=== PATIENT | female | born 1955 | race Caucasian/White ===

== ENCOUNTER 2017-02-12 23:00 | Emergency (ER) | payer SELFPAY ==
[~2017-02-12] VITALS: Ht 157.5 cm; Wt 49.0 kg
[~2017-02-12 23:00] MED LIST: CYCL-36 PO; ESZO2 PO; HYDR-2768 PO; LOVA20TA PO; NAPR500 PO; WELL150T PO
[2017-02-12 23:02] VITALS: BP 209/97; PULSE 104; RESP 18; TEMP 97.7; O2SAT 99
[2017-02-12] MEDS ORDERED: HYDR25TA5 PO (23:23)
[2017-02-12] MEDS ORDERED: LOVA20TA PO (23:23)
[2017-02-12] MEDS ORDERED: ESZO1TAB PO (23:23)
[2017-02-12] MEDS ORDERED: SODIUM CHLORIDE 0.9% FLUSH 5 ML FLUSH IVF PRN (23:45)
[2017-02-12] MEDS ORDERED: cloNIDine HCL 0.1 MG TAB PO ONE (23:45)
[2017-02-12 23:51] VITALS: BP 152/81; PULSE 88; RESP 16; O2SAT 97
--- NOTE | 2017-02-12 23:55 | PD ---
HPI Chief Complaint: Hypertension Time Seen by Provider: 23:34 Travel History International Travel<30 days: No Contact w/Intl Traveler<30days: No Traveled to known affect area: No History of Present Illness HPI Patient is a 62-year-old female with history of hypertension who presents to the emergency room with complaints of accelerated hypertension. She reports that she does take hydrochlorothiazide 25 mg every day for her hypertension. Patient reports that she has been working night shifts the past 2 weeks and has not taken any of her hydrochlorothiazide. Patient reports that since yesterday , she's had a headache, reports that she noticed that her blood pressure was elevated so she decided to come to the emergency room. Patient reports that she did take a dose of hydrochlorothiazide tonight as she related her symptoms due to accelerated hypertension from not taking her blood pressure medications. Patient at this time reports that she has a mild headache. Patient with no vision changes, no nausea or vomiting. Patient denies chest pain or shortness breath at this time. PFSH Past Medical History Cardiovascular Problems: Yes (HTN) High Cholesterol: Yes Hypertension: Yes Medical other: Yes (hx h pylori ) : 3 Para: 3 Tubal Ligation: Yes Past Surgical History Appendectomy: Yes Social History Alcohol Use: Yes Tobacco Use: Yes (1ppd) Substance Use: No Allergies-Medications (Allergen,Severity, Reaction): Coded Allergies: No Known Allergies (Unverified , 02/12/17) Reported Meds & Prescriptions Reported Meds & Active Scripts Active Reported Lovastatin 20 Mg Tab 20 Mg PO DAILY Hydrochlorothiazide 25 Mg Tab 25 Mg PO DAILY Lunesta (Eszopiclone) 2 Mg Tab 2 Mg PO HS PRN Review of Systems General / Constitutional: No: Fever Eyes: No: Diploplia, Blurred Vision, Photophobia, Visual changes HENT: Positive: Headaches Cardiovascular: No: Chest Pain or Discomfort Respiratory: No: Shortness of Breath Gastrointestinal: No: Abdominal Pain Genitourinary: No: Dysuria Musculoskeletal: No: Pain Skin: No Rash Neurologic: No: Weakness Psychiatric: No: Depression Endocrine: No: Polydipsia Hematologic/Lymphatic: No: Easy Bruising Physical Exam Narrative GENERAL: No acute distress, nontoxic SKIN: Warm and dry. HEAD: Atraumatic. Normocephalic. EYES: Pupils equal and round. No scleral icterus. No injection or drainage. ENT: No nasal bleeding or discharge. Mucous membranes pink and moist. NECK: Trachea midline. No JVD. CARDIOVASCULAR: Regular rate and rhythm. No murmur appreciated. RESPIRATORY: No accessory muscle use. Clear to auscultation. Breath sounds equal bilaterally. GASTROINTESTINAL: Abdomen soft, non-tender, nondistended. Hepatic and splenic margins not palpable. MUSCULOSKELETAL: No obvious deformities. No clubbing. No cyanosis. No edema. NEUROLOGICAL: Awake and alert. No obvious cranial nerve deficits. Motor grossly within normal limits. Normal speech. Cranial nerves to 12 was intact with no obvious deficits PSYCHIATRIC: Appropriate mood and affect; insight and judgment normal. Data Data Last Documented VS Vital Signs Date Time Temp Pulse Resp B/P Pulse Ox O2 Delivery O2 Flow Rate FiO2 02/13/17 00:59 79 16 133/86 100 Room Air 02/12/17 23:02 97.7 Orders Complete Blood Count With Diff (02/12/17 23:39) Comprehensive Metabolic Panel (02/12/17 23:39) Ct Brain W/O Iv Contrast(Rout) (02/12/17 23:39) Ecg Monitoring (02/12/17 23:39) Iv Access Insert/Monitor (02/12/17 23:39) Oximetry (02/12/17 23:39) Sodium Chloride 0.9% Flush (Ns Flush) (02/12/17 23:45) Urinalysis - C+S If Indicated (02/12/17 23:39) Clonidine (Catapres) (02/12/17 23:45) Labs Laboratory Tests Test 02/12/17 23:50 White Blood Count 7.9 TH/MM3 Red Blood Count 4.74 MIL/MM3 Hemoglobin 13.1 GM/DL Hematocrit 39.6 % Mean Corpuscular Volume 83.5 FL Mean Corpuscular Hemoglobin 27.6 PG Mean Corpuscular Hemoglobin 33.1 % Concent Red Cell Distribution Width 13.5 % Platelet Count 317 TH/MM3 Mean Platelet Volume 8.4 FL Neutrophils (%) (Auto) 48.2 % Lymphocytes (%) (Auto) 39.5 % Monocytes (%) (Auto) 8.4 % Eosinophils (%) (Auto) 2.5 % Basophils (%) (Auto) 1.4 % Neutrophils # (Auto) 3.8 TH/MM3 Lymphocytes # (Auto) 3.1 TH/MM3 Monocytes # (Auto) 0.7 TH/MM3 Eosinophils # (Auto) 0.2 TH/MM3 Basophils # (Auto) 0.1 TH/MM3 CBC Comment DIFF FINAL Differential Comment Sodium Level 139 MEQ/L Potassium Level 4.0 MEQ/L Chloride Level 103 MEQ/L Carbon Dioxide Level 27.7 MEQ/L Anion Gap 8 MEQ/L Blood Urea Nitrogen 24 MG/DL Creatinine 0.70 MG/DL Estimat Glomerular Filtration 85 ML/MIN Rate Random Glucose 100 MG/DL Calcium Level 8.5 MG/DL Total Bilirubin 0.2 MG/DL Aspartate Amino Transf 20 U/L (AST/SGOT) Alanine Aminotransferase 29 U/L (ALT/SGPT) Alkaline Phosphatase 81 U/L Total Protein 7.1 GM/DL Albumin 3.6 GM/DL MDM Medical Decision Making Medical Screen Exam Complete: Yes Emergency Medical Condition: Yes Interpretation(s) Vital Signs Date Time Temp Pulse Resp B/P Pulse Ox O2 Delivery O2 Flow Rate FiO2 02/12/17 23:14 97 Room Air 02/12/17 23:02 97.7 104 18 209/97 99 Room Air Differential Diagnosis Hypertensive urgency, intracranial hemorrhage, renal insufficiency, arrhythmia, sinusitis Narrative Course Patient is a 62-year-old female with history of hypertension, presents to emergency room with complaints of accelerated hypertension. 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 Patient reports that she began to have some headaches yesterday and today, was concerned that her blood pressure might be elevated. Reports that she did take a dose of her hydrochlorothiazide prior to coming to the emergency room. Patient reports that her headache is better at this time. CT of the head ordered as she does complain of a headache. Labs as well as UA ordered to evaluate for end organ damage. Patient was initially ordered clonidine for her blood pressure 209/97, blood pressure now 152/81 without any medications administered while in the emergency room. Plan to continue to monitor patient. CBC & BMP Diagram 02/12/17 23:[address] 02/12/17 [id number] Signed Impressions: Service Date/Time: Monday, February 13, 2017 00:14 - CONCLUSION: Normal examination. Suresh Covington MD Blood pressure now 133/86, patient completely asymptomatic feeling much better. Reviewed all labs and studies with patient detail. 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 Patient will return to emergency room as needed and follow-up with primary care doctor Diagnosis Primary Impression: Hypertension Qualified Code: I10 - Essential hypertension Patient Instructions: General Instructions Additional Instructions: Please take all medications as prescribed Please follow up with your Primary care doctor Return to emergency room as needed or if symptoms return or progress Disposition: 01 DISCHARGE HOME Condition: Stable Teena Del Angel DO Feb 12, 2017 23:55
[2017-02-12 23:59] LABS: AUTOMATED NEUTROPHIL # 3.8 TH/MM3 (1.8-7.7); BASOPHIL # 0.1 TH/MM3 (0-0.2); BASOPHIL % 1.4 % (0.0-2.0); EOSINOPHIL # 0.2 TH/MM3 (0-0.4); EOSINOPHIL % 2.5 % (0.0-4.0); HEMATOCRIT 39.6 % (35.0-46.0); HEMO FLAGS DIFF FINAL; LYMPH % 39.5 % (9.0-44.0); LYMPHOCYTE # 3.1 TH/MM3 (1.0-4.8); MEAN CELL VOLUME 83.5 FL (80.0-100.0); MEAN CORPUSCULAR HEMOGLOBIN 27.6 PG (27.0-34.0); MEAN CORPUSCULAR HGB CONC 33.1 % (32.0-36.0); MONO % 8.4 % (0.0-8.0); NEUT % 48.2 % (16.0-70.0); PLATELET COUNT 317 TH/MM3 (150-450); RED BLOOD COUNT 4.74 MIL/MM3 (4.00-5.30); RED CELL DISTRIBUTION WIDTH 13.5 % (11.6-17.2); WHITE BLOOD COUNT 7.9 TH/MM3 (4.0-11.0)
[2017-02-13 00:18] LABS: ALKALINE PHOSPHATASE 81 U/L (45-117); ALT (GPT) 29 U/L (10-53); ANION GAP 8 MEQ/L (5-15); AST (GOT) 20 U/L (15-37); BICARBONATE 27.7 MEQ/L (21.0-32.0); BLOOD UREA NITROGEN 24 MG/DL (7-18); CHLORIDE 103 MEQ/L (98-107); GLOMERULAR FILTRATION RATE 85 ML/MIN (>89); SODIUM (NA) 139 MEQ/L (136-145); TOTAL BILIRUBIN ADULT 0.2 MG/DL (0.2-1.0)
--- NOTE | 2017-02-13 00:47 | RADRPT ---
EXAM DATE/TIME: 02/13/2017 00:14 [facility] COMPARISON: No previous studies available for comparison. INDICATIONS : Cephalgia. RADIATION DOSE: 56.35 CTDIvol (mGy) MEDICAL HISTORY : Hypertension. SURGICAL HISTORY : None. ENCOUNTER: Initial ACUITY: 1 day PAIN SCALE: 5/10 LOCATION: cranial TECHNIQUE: Multiple contiguous axial images were obtained of the head. Using automated exposure control and adj ustment of the mA and/or kV according to patient size, radiation dose was kept as low as reasonably a chievable to obtain optimal diagnostic quality images. FINDINGS: CEREBRUM: The ventricles are normal for age. No evidence of midline shift, mass lesion, hemorrhage or acute in farction. No extra-axial fluid collections are seen. POSTERIOR FOSSA: The cerebellum and brainstem are intact. The 4th ventricle is midline. The cerebellopontine angle i s unremarkable. EXTRACRANIAL: The visualized portion of the orbits is intact. SKULL: The calvaria is intact. No evidence of skull fracture. CONCLUSION: Normal examination. Suresh Covington MD on February 13, 2017 at 0:44 Board Certified Radiologist. This report was verified electronically.
[2017-02-13 00:59] VITALS: BP 133/86; PULSE 79; RESP 16; O2SAT 100
[2017-02-13 01:51] VITALS: BP 133/84
== END 2017-02-13 01:57 | disposition home or self-care (01) ==
LOC: NEPC 23:00
DX: I10 Essential (primary) hypertension (principal)
CPT/HCPCS: 70450; 80053; 85025